=== PATIENT | female | born 1980 | race Asian ===

== ENCOUNTER 2017-07-13 19:39 | Emergency (ER) | payer SELFPAY ==
[~2017-07-13] VITALS: Ht 152.4 cm; Wt 83.5 kg
[2017-07-13 20:11] VITALS: Ht 152.4 cm; Wt 83.5 kg
[2017-07-13 22:23] VITALS: BP 116/79
== END 2017-07-13 22:23 | disposition home or self-care (01) ==
LOC: ED 19:39
DX: R51 Headache (principal); R53.1 Weakness
CPT/HCPCS: 36600

== ENCOUNTER 2018-02-17 17:05 | Emergency (ER) | payer BC ==
[~2018-02-17] VITALS: Ht 152.4 cm; Wt 83.0 kg
[2018-02-17 17:10] VITALS: Ht 152.4 cm; Wt 83.0 kg
[2018-02-17 18:53] VITALS: BP 118/58
== END 2018-02-17 18:53 | disposition home or self-care (01) ==
LOC: ED 17:05
DX: B35.3 Tinea pedis (principal); F32.9 Major depressive disorder, single episode, unspecified
CPT/HCPCS: Q0163